=== PATIENT | female | born 1970 | race Caucasian/White ===

== ENCOUNTER 2016-07-20 13:42 | Emergency (ER) | payer BC ==
--- NOTE | 2016-07-20 16:34 | UC ---
Throat Pain/Nasal Franc HPI - HPI Summary HPI Summary: ST for 2d. Son diagnosed with Strep by swab last week. She has had URI symptoms for 2 weeks, now feels worse with ST, headache, body aches. No measured fevers. - History of Current Complaint Stated Complaint: SORE THROAT Time Seen by Provider: 07/20/16 16:21 Hx Obtained From: Patient Hx Last Menstrual Period: 03/09/16 Onset/Duration: Gradual Onset, Lasting Weeks Severity: Moderate Cough: Nonproductive Associated Signs & Symptoms: Positive: Dysphagia, Hoarseness, Nasal Discharge - Epiglottits Risk Factors Epiglottis Risk Factors: Negative - Allergies/Home Medications Allergies/Adverse Reactions: Allergies Allergy/AdvReac Type Severity Reaction Status Date / Time Tetracycline Allergy Intermediate Rash Verified 09/09/15 07:14 PMH/Surg Hx/FS Hx/Imm Hx Previously Healthy: Yes Endocrine History Of: Denies: Diabetes, Hypothyroidism - Surgical History Surgical History: Yes Surgery Procedure, Year, and Place: , gallbladder. THYROID CYST ASPIRATION. T&A. wisdom teeth - Family History Known Family History: Positive: Hypertension - Social History Occupation: Employed Full-time - teacher Lives: With Family Alcohol Use: Occasionally Substance Use Type: None Smoking Status (MU): Former Smoker Type: Cigarettes When Did the Patient Quit Smoking/Using Tobacco: 1989 Review of Systems Constitutional: Negative Skin: Negative Eyes: Negative ENT: Sore Throat, Nasal Discharge Respiratory: Cough Cardiovascular: Negative Gastrointestinal: Negative Genitourinary: Negative Motor: Negative Neurovascular: Negative Musculoskeletal: Myalgia Neurological: Headache Psychological: Negative All Other Systems Reviewed And Are Negative: Yes Physical Exam Triage Information Reviewed: Yes Appearance: Well-Appearing, No Pain Distress, Well-Nourished Vital Signs Reviewed: Yes Eye Exam: Normal ENT: Positive: Pharyngeal erythema - with petechiae, Nasal drainage, TMs normal , Tonsillar swelling, Muffled/hoarse voice - hoarse. Negative: Tonsillar exudate Neck exam: Normal Neck: Positive: Supple Respiratory Exam: Normal Respiratory: Positive: Lungs clear, Normal breath sounds, No respiratory distress, No accessory muscle use Cardiovascular Exam: Normal Musculoskeletal Exam: Normal Neurological Exam: Normal Psychological Exam: Normal Skin Exam: Normal Throat Pain/Nasal Course/Dx - Differential Dx/Diagnosis Differential Diagnosis/HQI/PQRI: Pharyngitis, Sinusitis, URI Provider Diagnoses: Pharyngitis; sinusitis Discharge - Discharge Plan Condition: Stable Disposition: HOME Prescriptions: Cephalexin CAP* [Keflex CAP*] 500 mg PO TID #30 cap Patient Education Materials: Sinusitis (ED), Strep Throat (ED) Referrals: Jennifer GARZA,Pat Beltre [Primary Care Provider] -
[2016-07-20 16:50] VITALS: BP 116/82
== END 2016-07-20 17:12 | disposition home or self-care (01) ==
LOC: UCCORT 13:42
DX: J32.9 Chronic sinusitis, unspecified (principal); Z87.891 Personal history of nicotine dependence; Z88.1 Allergy status to other antibiotic agents
CPT/HCPCS: 99212; G0463

== ENCOUNTER 2017-04-02 15:25 | Emergency (ER) | payer BC ==
[2017-04-02 16:17] VITALS: BP 115/82
--- NOTE | 2017-04-02 17:01 | ED ---
Respiratory - HPI Summary HPI Summary: 46 yr old female with the complaint of coughing, productive of yellow sputum. Onset 5 days ago, and at first she had a lot of sinus congestion and drainage. She had post nasal drip, and sinus pressure, and over the past several days has had coughing. she denies SOB. Denies Chest pain. The patient states she has many ill exposures. She is status post sedation for colonoscopy about 10 days ago. - History of Current Complaint Chief Complaint: UCGeneralIllness Stated Complaint: CHEST CONGESTION/SINUS Time Seen by Provider: 04/02/17 16:20 - Allergy/Home Medications Allergies/Adverse Reactions: Allergies Allergy/AdvReac Type Severity Reaction Status Date / Time Tetracycline Allergy Intermediate Rash Verified 04/02/17 16:17 Home Medications: Home Medications Ranitidine TAB (NF) [Zantac TAB (NF)] 150 mg PO BID PRN 04/02/17 [History Confirmed 04/02/17] PMH/Surg Hx/FS Hx/Imm Hx Previously Healthy: Yes Endocrine/Hematology History: Denies: Hx Diabetes, Hx Anemia GI History: Denies: Hx Jaundice - Surgical History Surgery Procedure, Year, and Place: , gallbladder. THYROID CYST ASPIRATION. T&A. wisdom teeth Infectious Disease History: No Infectious Disease History: Denies: Traveled Outside the [place] in Last 30 Days - Family History Known Family History: Positive: Hypertension - Social History Alcohol Use: Occasionally Substance Use Type: Reports: None Smoking Status (MU): Former Smoker Type: Cigarettes Review of Systems Positive: Nasal Discharge, Other - sinus pressure Positive: Cough All Other Systems Reviewed And Are Negative: Yes Physical Exam Triage Information Reviewed: Yes Vital Signs On Initial Exam: Initial Vitals Temp Pulse Resp BP Pulse Ox 98.2 F 102 16 115/82 98 04/02/17 16:14 04/02/17 16:14 04/02/17 16:14 04/02/17 16:14 04/02/17 16:14 Appearance: Positive: Well-Appearing, No Pain Distress Skin: Positive: Warm, Skin Color Reflects Adequate Perfusion Head/Face: Positive: Normal Head/Face Inspection Eyes: Positive: EOMI, MELANY ENT: Positive: Pharynx normal, TMs normal Neck: Positive: Supple, Nontender Respiratory/Lung Sounds: Positive: Clear to Auscultation, Breath Sounds Present Cardiovascular: Positive: RRR. Negative: Murmur Abdomen Description: Positive: Nontender Musculoskeletal: Positive: Strength/ROM Intact Neurological: Positive: Normal, Sensory/Motor Intact, Alert, Oriented to Person Place, Time, CN Intact II-III Psychiatric: Positive: Normal - Paula Coma Scale Best Eye Response: 4 - Spontaneous Best Motor Response: 6 - Obeys Commands Best Verbal Response: 5 - Oriented Diagnostics - Vital Signs Vital Signs Temp Pulse Resp BP Pulse Ox 04/02/17 16:14 98.2 F 102 16 115/82 98 - Laboratory Lab Statement: Any lab studies that have been ordered have been reviewed, and results considered in the medical decision making process. - Radiology chest xray Xray Interpretation: No Acute Changes Radiology Interpretation Completed By: Radiologist Disposition - Course Course Of Treatment: 46 yr old female with coughing, sinus pressure, post nasal drip. Will cover her for sinusitis and acute bronchitis. Augmentin, prednisone , and MDI. - Diagnoses Provider Diagnoses: Sinusitis, Acute bronchitis Discharge - Discharge Plan Condition: Good Disposition: HOME Prescriptions: Albuterol HFA INHALER* [Ventolin HFA Inhaler*] 1 - 2 puff INH Q6H PRN #1 mdi PRN Reason: Cough Amoxicillin/Clavulanate TAB* [Augmentin TAB 875*] 875 mg PO BID #20 tab predniSONE TAB* [Deltasone TAB*] 20 mg PO DAILY #4 tab Patient Education Materials: Sinusitis (ED), Acute Bronchitis (ED) Referrals: Jennifer GARZA,Pat Beltre [Primary Care Provider] - 2 Days
--- NOTE | 2017-04-02 18:00 | RAD ---
INDICATION: Cough COMPARISON: None TECHNIQUE: PA and lateral dual-energy views were obtained. FINDINGS: Bones/Soft Tissues: There are no acute bony findings. Cardiomediastinal: The cardiomediastinal silhouette is normal. Lungs: There are no infiltrates. Pleura: There are no pleural effusions. Other: None IMPRESSION: NO ACTIVE DISEASE.
== END 2017-04-02 18:25 | disposition home or self-care (01) ==
LOC: UCCORT 15:25
DX: J32.9 Chronic sinusitis, unspecified (principal); J20.9 Acute bronchitis, unspecified
CPT/HCPCS: 71020; 99212; G0463

== ENCOUNTER 2017-04-07 10:53 | Emergency (ER) | payer BC ==
[2017-04-07 12:05] VITALS: BP 124/84
--- NOTE | 2017-04-07 12:22 | UC ---
Respiratory Complaint HPI - HPI Summary HPI Summary: C/O worsening cough with wheezing and shortness of breath. Was seen 2 days ago and put on Augmentin and prednisone. Inhaler mildly helpful. Sinuses are better. - History of Current Complaint Chief Complaint: UCRespiratory Stated Complaint: RE-CHECK BRONCHITIS Time Seen by Provider: 04/07/17 11:55 Hx Obtained From: Patient Hx Last Menstrual Period: 03/16/17 ?: No Onset/Duration: Gradual Onset, Lasting Days - 9, Worse Since - since yesterday. Timing: Constant Severity Initially: Mild Severity Currently: Moderate Character: Cough: Nonproductive Aggravating Factors: Deep Breaths, Recumbent Position Associated Signs And Symptoms: Positive: Dyspnea, Chills, Pleuritic Chest Pain, Wheezing, URI, Nasal Congestion Related History: Seasonal Allergies - Risk Factors Pulmonary Embolism Risk Factors: Negative Cardiac Risk Factors: Negative Pseudomonas Risk Factors: Negative Tuberculosis Risk Factors: Negative - Allergies/Home Medications Allergies/Adverse Reactions: Allergies Allergy/AdvReac Type Severity Reaction Status Date / Time Tetracycline Allergy Intermediate Rash Verified 04/07/17 12:04 PMH/Surg Hx/FS Hx/Imm Hx Previously Healthy: Yes - Surgical History Surgical History: Yes Surgery Procedure, Year, and Place: , gallbladder. THYROID CYST ASPIRATION. T&A. wisdom teeth - Family History Known Family History: Positive: Cardiac Disease, Hypertension Negative: Diabetes - Social History Occupation: Employed Full-time Lives: With Family Alcohol Use: Occasionally Substance Use Type: None Smoking Status (MU): Former Smoker Type: Cigarettes Have You Smoked in the Last Year: No When Did the Patient Quit Smoking/Using Tobacco: 1989 - Immunization History Most Recent Influenza Vaccination: none Review of Systems Constitutional: Chills ENT: Sore Throat, Nasal Discharge, Sinus Congestion Respiratory: Shortness Of Breath, Cough Gastrointestinal: Diarrhea - with the augmentin Is Patient Immunocompromised?: No All Other Systems Reviewed And Are Negative: Yes Physical Exam Triage Information Reviewed: Yes Appearance: No Pain Distress, Well-Nourished, Ill-Appearing Vital Signs: Initial Vital Signs Temp 98.1 F 04/07/17 12:00 Pulse 102 04/07/17 12:00 Resp 18 04/07/17 12:00 BP 124/84 04/07/17 12:00 Pulse Ox 99 04/07/17 12:00 Vital Signs Reviewed: Yes Eyes: Positive: Conjunctiva Clear ENT: Positive: Pharynx normal, Nasal congestion, TMs normal Neck exam: Normal Respiratory: Positive: Crackles - Right upper lateral chest, Wheezing Cardiovascular Exam: Normal Musculoskeletal Exam: Normal Neurological Exam: Normal Psychological Exam: Normal Skin Exam: Normal UC Diagnostic Evaluation - Laboratory O2 Sat by Pulse Oximetry: 99 - Radiology Xray Interpretation: Positive (See Comments) - RML infiltrate Radiology Interpretation Completed By: ED Physician Respiratory Course/Dx - Differential Dx/Diagnosis Differential Diagnosis/HQI/PQRI: Asthma, Lower Resp Infection, Sinusitis Provider Diagnoses: Bacterial pneumonia. Acute bronchospasm Discharge - Discharge Plan Condition: Stable Disposition: HOME Prescriptions: Clarithromycin TAB* [Biaxin 500 MG TAB*] 500 mg PO BID #20 tab predniSONE TAB* [Deltasone TAB*] 20 mg PO DAILY #18 tab Patient Education Materials: Pneumonia (ED), Clarithromycin (By mouth), Bronchospasm (ED), Prednisone (By mouth) Referrals: Jennifer GARZA,Pat Beltre [Primary Care Provider] - 2 Weeks (follow up on pneumonia)
--- NOTE | 2017-04-07 12:49 | RAD ---
HISTORY: Right upper lobe pneumonia on exam COMPARISONS: April 02, 2017 VIEWS: 4: Frontal dual-energy and lateral views of the chest. FINDINGS: CARDIOMEDIASTINAL SILHOUETTE: The cardiomediastinal silhouette is normal. KATHARINA: The katharina are normal. PLEURA: The costophrenic angles are sharp. No pleural abnormalities are noted. LUNG PARENCHYMA: There is confluent alveolar opacification of the right middle lobe medially ABDOMEN: The upper abdomen is clear. There is no subphrenic gas. BONES AND SOFT TISSUES: No bone or soft tissue abnormalities are noted. OTHER: None. IMPRESSION: RIGHT MIDDLE LOBE CONSOLIDATION. RECOMMEND FOLLOW-UP UNTIL RESOLUTION TO EXCLUDE UNDERLYING PULMONARY PARENCHYMAL PATHOLOGY.
== END 2017-04-07 13:09 | disposition home or self-care (01) ==
LOC: UCCORT 10:53
DX: J15.9 Unspecified bacterial pneumonia (principal); J98.01 Acute bronchospasm; Z88.1 Allergy status to other antibiotic agents; Z87.891 Personal history of nicotine dependence
CPT/HCPCS: 71020; 99212; G0463

== ENCOUNTER 2017-07-19 07:12 | Emergency (ER) | payer BC ==
[2017-07-19 07:24] VITALS: BP 131/92
--- NOTE | 2017-07-19 08:03 | UC ---
Respiratory Complaint HPI - HPI Summary HPI Summary: 47 yo female with myalgias <48 hrs feverish/chills cough runny nose no CP or SOB no n/v/d - History of Current Complaint Chief Complaint: UCGeneralIllness Stated Complaint: SINUS Time Seen by Provider: 07/19/17 07:30 Hx Obtained From: Patient Hx Last Menstrual Period: 07/02/17 Onset/Duration: Gradual Onset, Lasting Days Timing: Constant Severity Initially: Mild Severity Currently: Moderate Pain Intensity: 3 Pain Scale Used: 0-10 Numeric Character: Cough: Nonproductive Aggravating Factors: Nothing Alleviating Factors: Nothing Associated Signs And Symptoms: Positive: Fever, Chills, URI, Nasal Congestion - Allergies/Home Medications Allergies/Adverse Reactions: Allergies Allergy/AdvReac Type Severity Reaction Status Date / Time Tetracyclines Allergy Intermediate fever, rash Verified 07/19/17 07:25 PMH/Surg Hx/FS Hx/Imm Hx Previously Healthy: Yes - Surgical History Surgical History: Yes Surgery Procedure, Year, and Place: , gallbladder. THYROID CYST ASPIRATION. T&A. wisdom teeth - Family History Known Family History: Positive: Cardiac Disease, Hypertension Negative: Diabetes - Social History Alcohol Use: Occasionally Substance Use Type: None Smoking Status (MU): Never Smoked Tobacco Type: Cigarettes Length of Time of Smoking/Using Tobacco: "in college" Have You Smoked in the Last Year: No When Did the Patient Quit Smoking/Using Tobacco: 1989 - Immunization History Most Recent Influenza Vaccination: Not the Season Review of Systems Constitutional: Fever, Chills, Fatigue Skin: Negative Eyes: Negative ENT: Nasal Discharge, Sinus Congestion Respiratory: Cough Cardiovascular: Negative Gastrointestinal: Negative Genitourinary: Negative Motor: Negative Neurovascular: Negative Musculoskeletal: Myalgia Neurological: Headache Psychological: Negative Is Patient Immunocompromised?: No All Other Systems Reviewed And Are Negative: Yes Physical Exam Triage Information Reviewed: Yes Appearance: Well-Appearing, No Pain Distress, Well-Nourished Vital Signs: Initial Vital Signs Temp 99.8 F 07/19/17 07:18 Pulse 110 07/19/17 07:18 Resp 18 07/19/17 07:18 BP 131/92 07/19/17 07:18 Pulse Ox 100 07/19/17 07:18 Vital Signs Reviewed: Yes Eyes: Positive: Conjunctiva Clear ENT: Positive: Hearing grossly normal, Nasal congestion, Nasal drainage, Uvula midline. Negative: TMs normal - porrly visualized due to cerumen, Trismus, Muffled voice, Hoarse voice, Dental tenderness, Sinus tenderness Neck: Positive: Supple, Nontender, No Lymphadenopathy Respiratory: Positive: Lungs clear, Normal breath sounds, No respiratory distress, No accessory muscle use Cardiovascular: Positive: RRR, No Murmur Bowel Sounds: Positive: Present Musculoskeletal: Positive: ROM Intact, No Edema Neurological: Positive: Alert Psychological Exam: Normal Skin Exam: Normal UC Diagnostic Evaluation - Laboratory Pertinent Lab Values Are: WNL Except: - (+) influenza B O2 Sat by Pulse Oximetry: 100 - normal/not hypoxic Respiratory Course/Dx - Differential Dx/Diagnosis Provider Diagnoses: influenza Discharge - Discharge Plan Condition: Stable Disposition: HOME Prescriptions: Oseltamivir CAP* [Tamiflu CAP*] 75 mg PO BID #10 cap Patient Education Materials: Influenza (ED) Forms: *Work Release Referrals: Jennifer GARZA,Pat Beltre [Primary Care Provider] - 5 Days (if not better) Additional Instructions: rest fluids recheck for new or worsening symptoms recheck next week if not better
== END 2017-07-19 08:15 | disposition home or self-care (01) ==
LOC: UCCORT 07:12
DX: J11.1 Influenza due to unidentified influenza virus with other respiratory manifestations (principal)
CPT/HCPCS: 87502; 99212; G0463

== ENCOUNTER 2018-07-25 16:18 | Emergency (ER) | payer BC ==
--- NOTE | 2018-07-25 17:42 | UC ---
Throat Pain/Nasal Franc HPI - HPI Summary HPI Summary: 48 yo female presents with sinus pain/pressure/congestion for 1 week. She has also had a mildly painful and scratchy throat the last 2-3 days. 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 Has been taking sudafed and mucinex OTC with mild relief of her sinus symptoms, but doesn't seem to be improving. Denies fever, chills, cough, rash, n/v. - History of Current Complaint Stated Complaint: SINUS PRESSURE Time Seen by Provider: 07/25/18 17:42 Hx Obtained From: Patient Hx Last Menstrual Period: 07/02/17 Onset/Duration: Gradual Onset Severity: Moderate Pain Intensity: 5 Pain Scale Used: 0-10 Numeric - Allergies/Home Medications Allergies/Adverse Reactions: Allergies Allergy/AdvReac Type Severity Reaction Status Date / Time Tetracyclines Allergy Intermediate fever, rash Verified 07/19/17 07:25 Home Medications: Home Medications Ibuprofen 400 mg PO ONCE 07/25/18 [History Confirmed 07/25/18] Pseudoephedrine TAB* [Sudafed TAB*] 30 mg PO DAILY 07/25/18 [History Confirmed 07/25/18] PMH/Surg Hx/FS Hx/Imm Hx GI/ History: Gastroesophageal Reflux - Surgical History Surgical History: Yes Surgery Procedure, Year, and Place: , gallbladder. THYROID CYST ASPIRATION. T&A. wisdom teeth - Family History Known Family History: Positive: Cardiac Disease, Hypertension Negative: Diabetes - Social History Occupation: Employed Full-time Lives: With Family Alcohol Use: Occasionally Substance Use Type: None Smoking Status (MU): Never Smoked Tobacco Type: Cigarettes Length of Time of Smoking/Using Tobacco: "in college" Have You Smoked in the Last Year: No When Did the Patient Quit Smoking/Using Tobacco: 1989 - Immunization History Most Recent Influenza Vaccination: Not the 2017/2017 Season Review of Systems All Other Systems Reviewed And Are Negative: Yes Constitutional: Positive: Negative Skin: Positive: Negative Eyes: Positive: Negative ENT: Positive: Sore Throat, Nasal Discharge, Sinus Congestion, Sinus Pain/ Tenderness Respiratory: Positive: Negative Cardiovascular: Positive: Negative Gastrointestinal: Positive: Negative Neurovascular: Positive: Negative Neurological: Positive: Negative Psychological: Positive: Negative Physical Exam - Summary Physical Exam Summary: GENERAL: NAD. WDWN. No pain distress. SKIN: No rashes, sores, lesions, or open wounds. HEENT: Head: AT/NC Eyes: EOM intact. Conjunctiva clear without inflammation or discharge. Ears: Hearing grossly normal. TMs intact, no bulging, erythema, or edema. Nose: Nasal mucosa mildly swollen and erythematous with yellow discharge. TTP maxillary and frontal sinus. Positive post nasal drip Throat: Posterior oropharynx without exudates, erythema, or tonsillar enlargement. Uvula midline. NECK: Supple. Nontender. No lymphadenopathy. CHEST: CTAB. No r/r/w. No accessory muscle use. Breathing comfortably and in no distress. CV: RRR. Without m/r/g. Pulses intact. NEURO: Alert. PSYCH: Age appropriate behavior. Triage Information Reviewed: Yes Vital Signs: Vital Signs: Temp Pulse Resp BP Pulse Ox 96.9 F 98 16 136/92 98 07/25/18 17:43 07/25/18 17:43 07/25/18 17:43 07/25/18 17:43 07/25/18 17:43 Laboratory Tests 07/25/18 17:47 Group A Strep Rapid Negative Vital Signs Reviewed: Yes Throat Pain/Nasal Course/Dx - Course Course Of Treatment: Sinusitis - Differential Dx/Diagnosis Provider Diagnosis: Sinusitis Discharge - Sign-Out/Discharge Documenting (check all that apply): Patient Departure All imaging exams completed and their final reports reviewed: No Studies - Discharge Plan Condition: Stable Disposition: HOME Prescriptions: Azithromycin TAB* [Zithromax TAB (Z-NATALIE) 250 mg #6 tabs] 2 tab PO .TODAY, THEN 1 DAILY #1 natalie Patient Education Materials: Sinusitis (ED) Referrals: Jennifer GARZA,Pat Beltre [Primary Care Provider] - Additional Instructions: If you develop a fever, shortness of breath, chest pain, new or worsening symptoms - please call your PCP or go to the ED. Your blood pressure was high at todays visit. Please see your primary provider within 4 weeks for recheck and re-evaluation. - Billing Disposition and Condition Condition: STABLE Disposition: Home - Attestation Statements Provider Attestation: Per institutional requirements, I have reviewed the chart, however, I was not consulted specifically or made aware of this patient by the midlevel provider. I did not personally evaluate, interact with , or disposition this patient.
[2018-07-25 17:47] VITALS: BP 136/92
== END 2018-07-25 18:16 | disposition home or self-care (01) ==
LOC: UCCORT 16:18
DX: J32.9 Chronic sinusitis, unspecified (principal); Z88.1 Allergy status to other antibiotic agents
CPT/HCPCS: 87651; 99212; G0463